=== PATIENT | male | born 1980 | race Two or more races ===

== ENCOUNTER 2018-08-31 22:52 | Emergency (ER) | payer SELFPAY ==
[~2018-08-31] VITALS: Ht 167.6 cm; Wt 99.8 kg
[2018-09-01] MEDS ORDERED: ONDANSETRON PF 4 MG/2 ML VIAL. IV ONE
[2018-09-01] MEDS ORDERED: MORPHINE SULFATE 4 MG/ML VIAL. IV ONE
[2018-09-01] MEDS ORDERED: KETOROLAC 30 MG/ML VIAL. IV ONE
[2018-09-01] MEDS ORDERED: ONDANSETRON PF 4 MG/2 ML VIAL. ONE (00:01)
[2018-09-01] MEDS ORDERED: MORPHINE SULFATE 4 MG/ML VIAL. ONE (00:01)
[2018-09-01 00:13] LABS: BASO # 0.1 x10^3/uL (0.0-0.2); BASO % 1 % (0-3); EOS % 0 % (0-3); HEMATOCRIT 45.1 % (39.0-53.0); HEMOGLOBIN 15.1 g/dL (13.0-17.5); LYMPH # 1.7 x10^3/uL (1.0-4.8); LYMPH % 13 % (24-48); MEAN CORPUSCULAR HEMOGLOBIN 29 pg (25-35); MEAN CORPUSCULAR HGB CONC 34 g/dL (31-37); MEAN CORPUSCULAR VOLUME 87 fL (79-100); MONO # 0.9 x10^3/uL (0.0-1.1); MONO % 7 % (0-9); NEUT # 10.5 x10^3uL (1.8-7.7); NEUT % 80 % (31-73); PLATELET COUNT 307 x10^3/uL (140-400); RED BLOOD COUNT 5.16 x10^6/uL (4.30-5.70); RED CELL DISTRIBUTION WIDTH 12.4 % (11.5-14.5); WHITE BLOOD COUNT 13.2 x10^3/uL (4.0-11.0)
[2018-09-01 00:36] LABS: C-REACTIVE PROTEIN 13.4 mg/L (0-3.3); CREATININE 1.1 mg/dL (0.7-1.3); GFR 74.5; POTASSIUM 3.9 mmol/L (3.5-5.1)
--- NOTE | 2018-09-01 01:34 | RAD ---
KNEE 3 VIEWS RIGHT Clinical Indication: Knee pain. Comparison: None. Findings: There is no acute fracture or dislocation. The tricompartmental joint spaces are maintained. There are small marginal osteophytes of all 3 compartments. There is bipartite or possibly tripartite patella along the lateral superior margin. The patella is in anatomic position. Small to moderate joint effusion. Mild infrapatellar soft tissue swelling. IMPRESSION: 1. No acute fracture. 2. Small to moderate joint effusion. 3. Bipartite/tripartite patella. Electronically signed by: Olivier Rondon MD (09/01/2018 1:31 AM) [facility]
[2018-09-01] MEDS ORDERED: HYDR-2761 PO (02:43)
[2018-09-01] MEDS ORDERED: PRED50TA PO (02:43)
[2018-09-01] MEDS ORDERED: predniSONE 20 MG TABLET PO ONE (02:45)
[2018-09-01 02:58] VITALS: BP 122/79
--- NOTE | 2018-09-01 04:08 | PHYS DOC ---
Past Medical History Past Medical History: No Pertinent History Past Surgical History: No Surgical History Alcohol Use: None Drug Use: None Adult General Chief Complaint Chief Complaint: HEADACHE HPI HPI Patient is a 38 year old male presents with right knee pain, tenderness and swelling. Symptom onset was today. Patient also reports headache described as frontal and has fever which she is unaware of. No rash, sore throat, insect bites. No history of trauma for right knee pain. No other acute symptoms or complaints. 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 [] Review of Systems Review of Systems ROS as per HPI All other systems were reviewed and found to be within normal limits, except as documented in this note. Current Medications Current Medications Current Medications Medications (Trade) Dose Ordered Sig/Yeyo Start Time Stop Time Status Last Admin Dose Admin Ketorolac Tromethamine (Toradol 30mg Vial) 30 mg 1X ONCE 09/01/18 00:00 09/01/18 00:01 DC 09/01/18 00:08 30 MG Morphine Sulfate (Morphine Sulfate) 4 mg STK-MED ONCE 09/01/18 00:01 09/01/18 00:02 DC Ondansetron HCl (Zofran) 4 mg STK-MED ONCE 09/01/18 00:01 09/01/18 00:02 DC Prednisone (Prednisone) 60 mg 1X ONCE 09/01/18 02:45 09/01/18 02:46 DC 09/01/18 03:11 60 MG Allergies Allergies Allergies Coded Allergies Type Severity Reaction Last Updated Verified No Known Drug Allergies 08/31/18 No Physical Exam Physical Exam Constitutional: Well developed, well nourished, no acute distress, non-toxic appearance. [] HENT: Normocephalic, sinus tenderness, bilateral external ears normal, oropharynx moist, no oral exudates, nose normal. [] Eyes: PERRLA, EOMI, conjunctiva normal, no discharge. [] Neck: Normal range of motion, no tenderness, supple, no stridor. [] Cardiovascular:Heart rate regular rhythm, no murmur [] Lungs & Thorax: Bilateral breath sounds clear to auscultation [] Abdomen: Bowel sounds normal, soft, no tenderness, no masses, no pulsatile mass es. [] Skin: Warm, dry, no erythema, no rash. [] Back: No tenderness,. [] Extremities: Knee, joint effusion, tenderness, swelling, no erythema, warmth. Range of motion limited secondary to pain. [] Neurologic: Alert and oriented, normal motor function, normal sensory function, no focal deficits noted. [] Psychologic: Affect normal, judgement normal, mood normal. [] Current Patient Data Vital Signs Vital Signs Date Time Temp Pulse Resp B/P (MAP) Pulse Ox O2 Delivery O2 Flow Rate FiO2 09/01/18 02:58 69 18 95 09/01/18 02:39 98.3 98.3 08/31/18 23:34 157/101 (119) Room Air Lab Values Laboratory Tests Test 08/31/18 23:59 09/01/18 00:01 White Blood Count 13.2 x10^3/uL (4.0-11.0) H Red Blood Count 5.16 x10^6/uL (4.30-5.70) Hemoglobin 15.1 g/dL (13.0-17.5) Hematocrit 45.1 % (39.0-53.0) Mean Corpuscular Volume 87 fL (79-100) Mean Corpuscular Hemoglobin 29 pg (25-35) Mean Corpuscular Hemoglobin Concent 34 g/dL (31-37) Red Cell Distribution Width 12.4 % (11.5-14.5) Platelet Count 307 x10^3/uL (140-400) Neutrophils (%) (Auto) 80 % (31-73) H Lymphocytes (%) (Auto) 13 % (24-48) L Monocytes (%) (Auto) 7 % (0-9) Eosinophils (%) (Auto) 0 % (0-3) Basophils (%) (Auto) 1 % (0-3) Neutrophils # (Auto) 10.5 x10^3uL (1.8-7.7) H Lymphocytes # (Auto) 1.7 x10^3/uL (1.0-4.8) Monocytes # (Auto) 0.9 x10^3/uL (0.0-1.1) Eosinophils # (Auto) 0.0 x10^3/uL (0.0-0.7) Basophils # (Auto) 0.1 x10^3/uL (0.0-0.2) Erythrocyte Sedimentation Rate 17 (0-15) H Sodium Level 137 mmol/L (136-145) Potassium Level 3.9 mmol/L (3.5-5.1) Chloride Level 97 mmol/L (98-107) L Carbon Dioxide Level 25 mmol/L (21-32) Anion Gap 15 (6-14) H Blood Urea Nitrogen 14 mg/dL (8-26) Creatinine 1.1 mg/dL (0.7-1.3) Estimated GFR (Cockcroft-Gault) 74.5 Glucose Level 150 mg/dL (70-99) H Calcium Level 9.0 mg/dL (8.5-10.1) C-Reactive Protein, Quantitative 13.4 mg/L (0-3.3) H Uric Acid 8.7 mg/dL (3.5-7.2) H Laboratory Tests 08/31/18 23:59 Laboratory Tests 08/31/18 23:59 EKG EKG [] Radiology/Procedures Radiology/Procedures [] Course & Med Decision Making Course & Med Decision Making Pertinent Labs and Imaging studies reviewed. (See chart for details) [Pain improved with tx. Uric acid positve. JULIO and fever, not clearly related to symptoms. Recommend watchful waiting and PCP follow up. ] Dragon Disclaimer Dragon Disclaimer This electronic medical record was generated, in whole or in part, using a voice recognition dictation system. Departure Departure Impression: Primary Impression: Headache Additional Impressions: Fever Gout Right knee pain Disposition: 01 HOME, SELF-CARE Patient Instructions: Gout, [id number], Headaches, Analgesic Rebound, Fever, Adult, [id number] Additional Instructions: Please go home and rest. Take pain medications and steroids as directed. Follow up with your PCP tomorrow for re-evaluation. Return to the ED if new or worsening symptoms. Scripts Prednisone (PREDNISONE) 50 Mg Tablet 1 TAB PO DAILY, #5 TAB Prov: YANET GOMEZ DO 09/01/18 Hydrocodone Bit/Acetaminophen (HYDROCODONE-APAP 5-325 ) 1 Tab Tablet 1 TAB PO PRN Q6HRS PRN for PAIN, #10 TAB 0 Refills Prov: YANET GOMEZ DO 09/01/18 Problem Qualifiers YANET GOMEZ DO September 01, 2018 04:08
== END 2018-09-01 03:12 | disposition home or self-care (01) ==
LOC: ER 22:52
DX: M25.461 Effusion, right knee (principal); M10.9 Gout, unspecified; R51 Headache; R50.9 Fever, unspecified
CPT/HCPCS: 36415; 73562; 80048; 84550; 85025; 85651; 86140; 96374; 96375; 99285; J1885; J2270; J2405; J7512